=== PATIENT | female | born 1985 | race Caucasian/White ===

== ENCOUNTER 2020-11-11 07:00 | Inpatient (IN) | payer BC ==
[~2020-11-11] VITALS: Ht 170.2 cm; Wt 80.3 kg
[~2020-11-11 07:00] MED LIST: COLACE 100MG C100 MG PO; FEOSOL325 MG PO; FERROUS SULFAT325 M1 PO; IBUPROFEN600 MG PO; LORTAB 5-325 M1 EACH PO; PRENATAL VITAM1 EAC3 PO; SUBUTEX 8 MG TAB8 MG SL
[2020-11-15 06:00] LABS: HEMOGLOBIN 11.8 gm/dl (12.3-15.3); RED BLOOD COUNT 4.15 M/UL (4.00-5.10); WHITE BLOOD COUNT 8.3 K/UL (4.5-11.0)
[2020-11-15] MEDS ORDERED: SUBUTEX 8 MG TAB8 MG SL (06:44)
[2020-11-15] MEDS ORDERED: COLACE 100MG C100 MG PO (07:41)
[2020-11-15] MEDS ORDERED: IBUPROFEN600 MG PO (07:41)
[2020-11-15] MEDS ORDERED: BUPRENORPHIN-N1 EACH SL (07:41)
[2020-11-16 05:10] LABS: HEMOGLOBIN 9.4 gm/dl (12.3-15.3)
== END 2020-11-18 13:42 | disposition home or self-care (01) | DRG 786 ==
LOC: OB 11-15 05:30
PROVIDERS: ADMIT Obstetrics & Gynecology
PROC: 4A1HXCZ Monitoring of Products of Conception, Cardiac Rate, External Approach (ICD-10-PCS; 2020-11-15)
PROC: 10D00Z1 Extraction of Products of Conception, Low, Open Approach (ICD-10-PCS; principal; 2020-11-15 07:00)
DX: O34.211 Maternal care for low transverse scar from previous cesarean delivery (principal); U07.1 COVID-19; O98.52 Other viral diseases complicating childbirth; D62 Acute posthemorrhagic anemia; O99.324 Drug use complicating childbirth; O99.52 Diseases of the respiratory system complicating childbirth; J98.8 Other specified respiratory disorders; Z3A.37 37 weeks gestation of pregnancy; Z37.0 Single live birth; O99.02 Anemia complicating childbirth; D50.9 Iron deficiency anemia, unspecified; F11.10 Opioid abuse, uncomplicated
CPT/HCPCS: 36415; 80307; 81001; 82800; 85014; 85018; 85025; C9113; J0690; J1885; J2274; J2405; J2590; J3010; J7120